=== PATIENT | female | born 1980 | race Caucasian/White ===

== ENCOUNTER 2018-07-01 11:02 | Inpatient (IN) ==
[2018-07-01] MEDS ORDERED: LORazepam 1 MG TAB PO STA (11:56)
[2018-07-01] MEDS ORDERED: SODIUM CHLORIDE 0.9% 1000ML 1,000 ML IV SCH (12:00)
[2018-07-01 12:04] LABS: Hematocrit (blood only) 42.7 % (37-47); Hemoglobin 14.1 g/dL (12.0-16.0); Mean Corpuscular Volume 101.7 fL (80-100); Mean Platelet Volume 9.8 fL (7.4-10.4); Platelet Count 298 K/uL (130-400); RDW Coefficient of Variation 13.5 % (11.5-14.5); RDW Standard Deviation 50.9 fL (36.4-46.3); White Blood Count 8.97 K/uL (4.8-10.8)
[2018-07-01 12:12] LABS: Albumin Level 4.1 gm/dl (3.4-5.0); BUN Creatinine Ratio 7.4 (10-20); Calcium 8.7 mg/dl (8.5-10.1); Creatinine Clr Calc Pharmacy 71.1 ml/min; Est GFR (African American) 81.8; Est GFR (Non-African American) 70.6; Magnesium 2.3 mg/dl (1.8-2.4); Potassium 3.2 mmol/L (3.5-5.1)
[2018-07-01] MEDS ORDERED: LORazepam 1 MG/2 ML VIAL IV STA (12:15)
[2018-07-01 12:23] LABS: Bilirubin,Total 0.5 mg/dl (0.2-1); Globulin 4.3 gm/dl (2.5-4.0); Total Protein 8.4 gm/dl (6.4-8.2)
[2018-07-01 12:34] LABS: ALC (manual) 4.32 K/uL (1.2-3.4); Basophils # (manual) 0.08 K/uL (0-0.2); Basophils % (manual) 0.9 %; Eosinophils # (manual) 0.16 K/uL (0-0.5); Lymphocytes # (manual) 2.85 K/uL (1.2-3.4); Lymphocytes % (manual) 31.8 %; Monocytes # (manual) 0.32 K/uL (0.11-0.59); Monocytes % (manual) 3.6 %; Neutrophils % (manual) 45.5 %; Reactive Lymphocytes # (manual) 1.47 K/uL
--- NOTE | 2018-07-01 12:36 | CT Scan Report ---
CT head/brain wo con CLINICAL HISTORY: 38 years-old Female with syncope. Acute syncope TECHNIQUE: Multiple axial CT images of the head were obtained without contrast. A dose lowering tech nique was utilized adhering to the principles of ALARA. CT DOSE: 537.48 mGy.cm COMPARISON: None. FINDINGS: No acute intracranial hemorrhage, midline shift, intracranial mass, hydrocephalus, territorial ischem ia or abnormal extra-axial collection. Prominent perivascular space about the inferior left lentiform nucleus. The calvarium is intact. The paranasal sinuses, mastoid air cells, and middle ear cavities are clear . IMPRESSION: No acute intracranial abnormality. The above report was generated using voice recognition software. It may contain grammatical, syntax o r spelling errors. Electronically signed by: Ray Blank M.D. 07/01/2018 12:35 PM
[2018-07-01] MEDS ORDERED: LORazepam 2 MG/4 ML VIAL IV STA (12:38)
--- NOTE | 2018-07-01 15:02 | History & Physical Report ---
Date of Service July 01, 2018 Assessment & Plan (1) Alcohol withdrawal seizure: Father tells a very convincing history for seizure (see HPI). Alcohol withdrawal seizure the most likely given her alcohol consumption with frequent cessation for testing. Other etiologies less likely, and will defer EEG to neurology discretion. Other causes of syncope such as arrythmia or vasovagal seem less likely given history. - Neurology consult - Seizure precautions - Telemetry (2) Alcohol use: Per patient, drinks ~8 drinks (rum) per day every 2-3 days. Per father to ED provider, more frequent and possibly larger amounts. Discussed safe alcohol consumption with the patient. - Banana bag, then oral vitamin repletion - LARISA protocol - Psych liaison for alcohol use (3) Anxiety: No current anxiety or depression per patient. - Continue home meds (4) Hepatitis: AST/ALT were 130/114 on admission, lending some support to increased alcohol intake. - Hepatitis C testing - Monitor LFTs - Outpatient follow up unless trending upwards (5) Elevated TSH: TSH was 7.9 on admission. Given acute illness, thyroid function testing may be abnormal. Will defer further testing as patient has no signs/symptoms of hypothyroidism. - Repeat in 4-6 weeks (6) DVT prophylaxis: SCDs - Low risk per calculator History of Present Illness Primary Care Provider: Orlin Patel 38yo F w/ hx of depression and insomnia who presents with very likely seizure. Patient was at [facility] with her father. The father reports that she mentioned that the ceiling fans were bothersome or "flashing," though there were none there. She then rafaela her arms up to her chest and started shaking with eyes rolling in her head. Her father is not sure if she had some mouth movements or not. No tongue biting and no nasrin or bladder incontinence. He reports that she was still standing, and was stiff and could not get put down. He reports the episode lasted a few seconds, then resolved, but that she had another episode a few minutes later, but was able to be lowered to the ground. He reports that she was confused afterward for at least an hour or so. She was brought by EMS to the ED where she received 2mg IV Ativan and 1 L normal saline. At present, she is tired, but otherwise asymptomatic. She reports that she drinks "3-4" drinks with rum and water every few days ( about every other or every 3rd day). The drinks usually have 1.5 to 2 shots of rum, making a total of ~8 drinks on the days she drinks. Per ED staff, her father privately expressed concern that she drinks more than she lets on or admits. She had a DUI previously and per her father, she will stop drinking for a few days prior to visiting her credit control officer. She denies any history of seizures in the past or alcohol withdrawals. Allergies Allergy/AdvReac Type Severity Reaction Status Date / Time No Known Allergies Allergy Unverified 07/01/18 11:40 Home Medications Home Medications Medication Instructions Recorded Confirmed Type fluoxetine [Prozac] 20 mg PO DAILY 07/01/18 07/01/18 History hydroxyzine HCl 100 mg PO HS PRN 07/01/18 07/01/18 History Past Med/Surg History Medical History Anxiety (Chronic) Depression (Chronic) Surgical History delivery delivered Family History Sister Bipolar 2 disorder Social History Feels Safe at Home: Yes Smoking Status: Current some day smoker Hx Alcohol Use: Yes Alcohol Intake Frequency: a few times a week Preferred Language: [place] Communication Ability: Effective Review of Systems Constitutional: + fatigue; no fever, no chills and no sweats Eyes: no diplopia Ear, Nose, Mouth, Throat: no ear trauma, no nasal discharge and no dental pain Respiratory: no cough, no chest congestion and no dyspnea Cardiovascular: no chest pain, no dyspnea on exertion, no palpitations and no syncope Gastrointestinal: no abdominal pain, no belching, no constipation, no diarrhea/ loose stools, no blood in stools and no melena Musculoskeletal: no back pain, no joint pain and no muscle weakness Integumentary: no rash, no skin ulcer and no erythema Neurologic: no generalized weakness, no loss of sensation, no numbness and no paresthesia Psychiatric: no depression and no anxiety Endocrine: no fatigue, no polydipsia and no polyphagia Physical Exam 2 Vital Signs (Past 24 Hours): Last Vital Signs Temp 36.7 C 07/01/18 11:11 Pulse 76 07/01/18 13:52 Resp 18 07/01/18 13:52 BP 131/87 07/01/18 13:52 Pulse Ox 98 07/01/18 13:52 Constitutional: WD/WN, vitals as above cooperative and + lethargic Eyes: EOM intact bilaterally; no conjunctival abnormality ENMT: external ear and nose normal, oropharynx normal Neck: trachea midline, no thyromegaly normal visual inspection Respiratory: normal respiratory effort, lungs clear to auscultation no respiratory distress Cardiovascular: RRR, no murmur, no edema Gastrointestinal (Abdomen): Inspection/Auscultation: abdomen normal to inspection; abdomen not distended Musculoskeletal: no cyanosis or clubbing, extremities motor strength 5/5 Skin: no rashes, warm and dry Neurologic: moves all extremities and awake Psychiatric: Orientation: alert, oriented to person and cooperative _ (1) Alcohol withdrawal seizure Complication of substance-induced condition: uncomplicated Qualified Code(s) : F10.230 - Alcohol dependence with withdrawal, uncomplicated
[2018-07-01 15:17] LABS: Appearance Urine Clear (Clear); Bacteria Urine Automated 2+ (Negative); Bilirubin Urine Negative (Negative); Cast Urine Automated 0 /lpf (0-5); Color Urine Yellow; Glucose Urine UA Negative (Negative); Ketones Urine Negative (Negative); Leukocyte Esterase Urine Negative (Negative); Nitrite Urine Positive (Negative); Protein Urine Negative (Negative); Specific Gravity Urine 1.009 (1.000-1.030); Urobilinogen Urine Negative (Negative)
--- NOTE | 2018-07-01 15:42 | Emergency Department Note ---
Entered by Jennifer Manning acting as a scribe for History of Present Illness General Chief complaint: Seizure Source: patient History of Present Illness Provider complaint: seizure Onset (ago): day(s) (this morning) Location: left and right Pain Consistency: + other (episode) Quality: + other (seizure) Associated symptoms: + other (Associated symptoms: nausea. Denies: headache, fever, congestion, cough, cold, vomiting, diarrhea) The patient is a 38 year old female who presents to the Emergency Room with complaints of an episode of a seizure beginning this morning. She reports she is unsure what happened. The patient notes she remembers being in the grocery when she felt as though "many fans were blowing on her head," and does not remember what happened after that. Nursing notes report the patient's father witnessed this event and observed the patient having a seizure. He caught the patient before she hit the ground. The patient denies any headache, fever, congestion, cough, cold, vomiting, or diarrhea. She notes some mild nausea. The patient reports she slept very little last night, and had a strong cup of coffee this morning. She notes she usually has 1 cup of coffee per day and occasionally has energy drinks. She states she drinks alcohol about 4 times per week. The patient reports she last drank alcohol yesterday, and had 1 drink. She notes she does not drink a significant amount during the week and does not feel she has an alcohol dependency. The patient reports she is prescribed a daily medication for depression, and has not taken it for the past 4 days. Home Medications Home Medications Medication Instructions Recorded Confirmed Type fluoxetine [Prozac] 20 mg PO DAILY 07/01/18 07/01/18 History hydroxyzine HCl 100 mg PO HS PRN 07/01/18 07/01/18 History folic acid 1 mg PO QAM #30 tab 07/02/18 Rx levothyroxine 25 mcg PO QAM #30 tab 07/02/18 Rx phenobarbital 15 mg PO DIRECTED #16 tab 07/02/18 Rx thiamine HCl (vitamin B1) [Vitamin 200 mg PO BID #120 tab 07/02/18 Rx B-1] Allergies Allergy/AdvReac Type Severity Reaction Status Date / Time No Known Allergies Allergy Unverified 07/01/18 11:40 Past Med/Surg History Medical History Anxiety (Chronic) Depression (Chronic) Fatigue Varicose vein of leg Surgical History delivery delivered Social History Current Living Situation: Spouse current occupational status: employed 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 Other Information That Helps Us Care for You: Yes Feels Safe at Home: Yes Safety Concerns: Feels Safe At This Time Smoking Status: Current some day smoker Tobacco Type: cigarettes Cigarettes per Day: Averages 1 per day Do You Dip or Chew Tobacco: No Hx Alcohol Use: Yes (Rum) Alcohol Intake Frequency: 3 or more drinks per day Alcohol Intake Frequency Comment: Drinks rum,approximately 5-6 drinks per day, 3 days per week Hx Substance Use: No (Was a marijuana smoker quitting 2 years ago) Beliefs That Will Affect Care: None Preferred Language: Singaporean Review of Systems See HPI for pertinent positives & negatives. and A total of 10 systems reviewed and were otherwise negative Physical Exam Vital Signs Vital Signs - 24 hr 07/01/18 11:11 07/01/18 11:22 07/01/18 13:52 Temperature 36.7 C Temperature Source Oral Sepsis Recent Fever Within 48 Hours No Sepsis New/Unexplained Change in Mental Status No Sepsis Action Taken by Nursing No Action Required Pulse Rate - Lying Pulse Rate - Sitting Pulse Rate - Standing Pulse Rate 96 H Pulse Rate [Apical] 76 Pulse Rhythm Regular Pulse Rhythm [Apical] Regular Pulse Strength Normal Pulse Strength [Apical] Normal Respiratory Rate 18 18 Respiratory Effort / Characteristics Non-Labored Spontaneous Non-Labored Spontaneous Respiratory Depth Normal Normal Respiratory Pattern Regular Regular Blood Pressure - Lying Blood Pressure - Sitting Blood Pressure- Standing Blood Pressure 146/105 H Blood Pressure [Right Arm] 131/87 Blood Pressure Mean 118 Blood Pressure Mean [Right Arm] 101 Blood Pressure Position Lying Blood Pressure Position [Right Arm] Pulse Oximetry 98 100 98 Oxygen Delivery Method Room Air Room Air Room Air 07/01/18 14:21 07/01/18 15:00 Temperature Temperature Source Sepsis Recent Fever Within 48 Hours Sepsis New/Unexplained Change in Mental Status Sepsis Action Taken by Nursing Pulse Rate - Lying 81 Pulse Rate - Sitting 83 Pulse Rate - Standing 92 H Pulse Rate Pulse Rate [Apical] 85 Pulse Rhythm Pulse Rhythm [Apical] Regular Pulse Strength Pulse Strength [Apical] Normal Respiratory Rate 20 Respiratory Effort / Characteristics Non-Labored Spontaneous Respiratory Depth Normal Respiratory Pattern Regular Blood Pressure - Lying 127/83 Blood Pressure - Sitting 135/94 Blood Pressure- Standing 129/96 Blood Pressure Blood Pressure [Right Arm] 135/92 Blood Pressure Mean Blood Pressure Mean [Right Arm] 106 Blood Pressure Position Blood Pressure Position [Right Arm] Lying Pulse Oximetry 98 Oxygen Delivery Method Room Air Vital signs reviewed. Patient noted to be tachycardic and hypertensive. General: Well-appearing woman, jittery, in no significant distress. Some difficulty with recall, seizure precautions maintained. HEENT: No scleral icterus, PERRLA, neck supple. Atraumatic. Cardiovascular: Tachycardic rate and regular rhythm, no extra sounds. Pulmonary: Clear to auscultation bilaterally, normal work of breathing. Abdomen: Soft, nontender, nondistended, positive bowel sounds. Musculoskeletal: Atraumatic, no peripheral edema. Neurologic: Patient awake alert and oriented x 3, full strength in all 4 extremities. Cranial nerves 2 through 12 grossly intact. Skin: Warm, dry, no rash. Course 1152: Past medical records reviewed. The patient was evaluated in room C6, and a complete history and physical examination were performed. 1407: Upon reevaluation, the patient is resting. I discussed test results. They verbalized agreement with the treatment plan. 1410: I reviewed the patient's case with Dr. Sanches, [facility] hospitalist. He will evaluate the patient for further management. Consultations Consultation #1: I reviewed the patient's case with Dr. Sanches, [facility] hospitalist. He will evaluate the patient for further management. Time: 14:12 Administered Medications Discontinued Medications Acetaminophen (Tylenol) 650 mg PO Q4H PRN PRN Reason: pain/fever Stop: 07/31/18 16:46 Last Admin: 07/02/18 08:11 Dose: 650 mg Admin: 07/02/18 00:09 Dose: 650 mg Admin: 07/01/18 19:12 Dose: 650 mg Cyanocobalamin (Vitamin B-12) 100 mcg PO QAM [facility] Stop: 08/01/18 08:59 Last Admin: 07/02/18 08:12 Dose: 100 mcg Fluoxetine HCl (Prozac) 20 mg PO QPM [facility] Stop: 07/31/18 20:59 Last Admin: 07/01/18 20:59 Dose: Not Given Folic Acid (Folvite) 1 mg PO QAM [facility] Stop: 08/01/18 08:59 Last Admin: 07/02/18 08:12 Dose: 1 mg Gadobutrol (Gadavist 65ml) 6.5 ml IV ONCE PRN PRN Reason: Interaction Checking Stop: 07/06/18 10:59 Last Admin: 07/02/18 11:01 Dose: 6.5 ml Sodium Chloride (Nss 1000ml) 1,000 mls @ 999 mls/hr IV .Q1H1M [facility]FA[facility] Stop: 07/01/18 13:00 Last Infusion: 07/01/18 13:58 Dose: 0 mls/hr Admin: 07/01/18 12:54 Dose: 999 mls/hr Lorazepam (Ativan) 1 mg in 2 mls @ 2 mls/min IV NOW STA Stop: 07/01/18 12:16 Last Admin: 07/01/18 12:53 Dose: Not Given Lorazepam (Ativan) 2 mg in 4 mls @ 4 mls/min IV NOW STA Stop: 07/01/18 12:39 Last Admin: 07/01/18 12:53 Dose: 4 mls/min Multivitamins 10 ml/ Thiamine HCl 100 mg/ Folic Acid 1 mg/Sodium Chloride 1, 011.2 mls @ 250 mls/hr IV .Q4H3M JOSE RAFAEL Stop: 07/01/18 21:32 Last Infusion: 07/01/18 23:26 Dose: 0 mls/hr Admin: 07/01/18 19:13 Dose: 250 mls/hr Levothyroxine Sodium (Synthroid) 25 mcg PO DAILYBB JOSE RAFAEL Stop: 08/01/18 13:19 Last Admin: 07/02/18 14:36 Dose: 25 mcg Lorazepam (Ativan) 1 mg PO NOW STA Stop: 07/01/18 11:57 Last Admin: 07/01/18 12:53 Dose: Not Given Potassium Chloride (Klor-Con Pwd) 60 meq PO NOW ONE Stop: 07/01/18 17:16 Last Admin: 07/01/18 17:39 Dose: 60 meq Thiamine HCl (Vitamin B-1) 100 mg PO QAM [facility]FA[facility] Stop: 08/01/18 08:59 Last Admin: 07/02/18 08:12 Dose: 100 mg Thiamine HCl (Vitamin B-1) 200 mg PO BID [facility] RAFAEL Stop: 08/01/18 08:59 Last Admin: 07/02/18 10:01 Dose: 200 mg Vitamin D (Vitamin D3) 400 units PO QAM [facility] Stop: 08/01/18 08:59 Last Admin: 07/02/18 08:12 Dose: 400 units Medical Decision Making Differential Diagnosis DDx: Intracranial hemorrhage, intracranial mass, migraine headache, tension headache , sinusitis, meningitis, electrolyte abnormality, metabolic derangement, alcohol withdrawal Medical Records Attestation: I reviewed the patient's medical records. Home Medications Current Medication List: was personally reviewed by me Laboratory Data Attestation: I reviewed the patient's lab results. Result diagrams: 07/02/18 08:05 07/02/18 08:05 Lab Results 07/01/18 07/01/18 07/01/18 Range/Units 10:52 10:52 12:19 WBC 8.97 (4.8-10.8) K/uL RBC 4.20 (4.2-5.4) M/uL Hgb 14.1 (12.0-16.0) g/dL Hct 42.7 (37-47) % MCV 101.7 H (80-100) fL MCH 33.6 (25-34) pg MCHC 33.0 (32-36) g/dL RDW Std Deviation 50.9 H (36.4-46.3) fL RDW Coeff of Flip 13.5 (11.5-14.5) % Plt Count 298 (130-400) K/uL MPV 9.8 (7.4-10.4) fL Neutrophils % (Manual) 45.5 % Lymphocytes % (Manual) 31.8 % Reactive Lymphs % (Man) 16.4 % Monocytes % (Manual) 3.6 % Eosinophils % (Manual) 1.8 % Basophils % (Manual) 0.9 % Neutrophils # (Manual) 4.08 (1.4-6.5) K/uL Total Absolute Neuts 4.08 (1.4-6.5) K/uL Lymphocytes # (Manual) 2.85 (1.2-3.4) K/uL Reactive Lymphs # 1.47 K/uL Total Abs Lymphocytes 4.32 H (1.2-3.4) K/uL Monocytes # (Manual) 0.32 (0.11-0.59) K/uL Eosinophils # (Manual) 0.16 (0-0.5) K/uL Basophils # (Manual) 0.08 (0-0.2) K/uL Sodium 135 L (136-145) mmol/L Potassium 3.2 L (3.5-5.1) mmol/L Chloride 104 (98-107) mmol/L Carbon Dioxide 12 L (21-32) mmol/L Anion Gap 19.0 H (3-11) BUN 8 (7-18) mg/dl Creatinine 1.01 (0.6-1.2) mg/dl Est Cr Clr Drug Dosing 71.1 ml/min Est GFR ( Amer) 81.8 Est GFR (Non-Af Amer) 70.6 BUN/Creatinine Ratio 7.4 L (10-20) Glucose 119 H (70-99) mg/dl POC Glucose (70-99) Calcium 8.7 (8.5-10.1) mg/dl Magnesium 2.3 (1.8-2.4) mg/dl Total Bilirubin 0.5 (0.2-1) mg/dl AST 130 H (15-37) U/L ALT 114 H (12-78) U/L Alkaline Phosphatase 100 (45-117) U/L Total Protein 8.4 H (6.4-8.2) gm/dl Albumin 4.1 (3.4-5.0) gm/dl Globulin 4.3 H (2.5-4.0) gm/dl Albumin/Globulin Ratio 1.0 (0.9-2) Vitamin B12 (211-911) pg/ml Folate (>5.38) ng/ml TSH 7.980 H (0.300-4.500) uIu/ml Free T4 (0.8-1.6) ng/dl Urine Color Urine Appearance (Clear) Urine pH (4.5-7.5) Ur Specific [place] (1.000-1.030) Urine Protein (Negative) Urine Glucose (UA) (Negative) Urine Ketones (Negative) Urine Blood (Negative) Urine Nitrite (Negative) Urine Bilirubin (Negative) Urine Urobilinogen (Negative) Ur Leukocyte Esterase (Negative) Urine WBC (Auto) (0-5) /hpf Urine RBC (Auto) (0-4) /hpf U Hyaline Cast (Auto) (0-5) /lpf U Epithel Cells (Auto) (0-5) /lpf Urine Bacteria (Auto) (Negative) POC Ur Test (NEG) Ethyl Alcohol mg/dL < 3.0 (0-3) mg/dl Lyme Disease IgG Ab (Negative) Lyme Disease IgM Ab (Negative) Hepatitis C Antibody (Neg) 07/01/18 07/01/18 07/01/18 Range/Units 12:58 14:40 14:47 WBC (4.8-10.8) K/uL RBC (4.2-5.4) M/uL Hgb (12.0-16.0) g/dL Hct (37-47) % MCV (80-100) fL MCH (25-34) pg MCHC (32-36) g/dL RDW Std Deviation (36.4-46.3) fL RDW Coeff of Flip (11.5-14.5) % Plt Count (130-400) K/uL MPV (7.4-10.4) fL Neutrophils % (Manual) % Lymphocytes % (Manual) % Reactive Lymphs % (Man) % Monocytes % (Manual) % Eosinophils % (Manual) % Basophils % (Manual) % Neutrophils # (Manual) (1.4-6.5) K/uL Total Absolute Neuts (1.4-6.5) K/uL Lymphocytes # (Manual) (1.2-3.4) K/uL Reactive Lymphs # K/uL Total Abs Lymphocytes (1.2-3.4) K/uL Monocytes # (Manual) (0.11-0.59) K/uL Eosinophils # (Manual) (0-0.5) K/uL Basophils # (Manual) (0-0.2) K/uL Sodium (136-145) mmol/L Potassium (3.5-5.1) mmol/L Chloride (98-107) mmol/L Carbon Dioxide (21-32) mmol/L Anion Gap (3-11) BUN (7-18) mg/dl Creatinine (0.6-1.2) mg/dl Est Cr Clr Drug Dosing ml/min Est GFR ( Amer) Est GFR (Non-Af Amer) BUN/Creatinine Ratio (10-20) Glucose (70-99) mg/dl POC Glucose 83 (70-99) Calcium (8.5-10.1) mg/dl Magnesium (1.8-2.4) mg/dl Total Bilirubin (0.2-1) mg/dl AST (15-37) U/L ALT (12-78) U/L Alkaline Phosphatase (45-117) U/L Total Protein (6.4-8.2) gm/dl Albumin (3.4-5.0) gm/dl Globulin (2.5-4.0) gm/dl Albumin/Globulin Ratio (0.9-2) Vitamin B12 (211-911) pg/ml Folate (>5.38) ng/ml TSH (0.300-4.500) uIu/ml Free T4 (0.8-1.6) ng/dl Urine Color Yellow Urine Appearance Clear (Clear) Urine pH 5.0 (4.5-7.5) Ur Specific [place] 1.009 (1.000-1.030) Urine Protein Negative (Negative) Urine Glucose (UA) Negative (Negative) Urine Ketones Negative (Negative) Urine Blood Negative (Negative) Urine Nitrite Positive H (Negative) Urine Bilirubin Negative (Negative) Urine Urobilinogen Negative (Negative) Ur Leukocyte Esterase Negative (Negative) Urine WBC (Auto) 1-5 (0-5) /hpf Urine RBC (Auto) 0-4 (0-4) /hpf U Hyaline Cast (Auto) 0 (0-5) /lpf U Epithel Cells (Auto) 10-20 H (0-5) /lpf Urine Bacteria (Auto) 2+ H (Negative) POC Ur Test NEG (NEG) Ethyl Alcohol mg/dL (0-3) mg/dl Lyme Disease IgG Ab (Negative) Lyme Disease IgM Ab (Negative) Hepatitis C Antibody (Neg) 07/01/18 07/02/18 07/02/18 Range/Units 17:00 08:05 08:05 WBC 5.04 (4.8-10.8) K/uL RBC 3.79 L (4.2-5.4) M/uL Hgb 12.8 (12.0-16.0) g/dL Hct 38.2 (37-47) % MCV 100.8 H (80-100) fL MCH 33.8 (25-34) pg MCHC 33.5 (32-36) g/dL RDW Std Deviation 50.7 H (36.4-46.3) fL RDW Coeff of Flip 13.7 (11.5-14.5) % Plt Count 256 (130-400) K/uL MPV 9.7 (7.4-10.4) fL Neutrophils % (Manual) % Lymphocytes % (Manual) % Reactive Lymphs % (Man) % Monocytes % (Manual) % Eosinophils % (Manual) % Basophils % (Manual) % Neutrophils # (Manual) (1.4-6.5) K/uL Total Absolute Neuts (1.4-6.5) K/uL Lymphocytes # (Manual) (1.2-3.4) K/uL Reactive Lymphs # K/uL Total Abs Lymphocytes (1.2-3.4) K/uL Monocytes # (Manual) (0.11-0.59) K/uL Eosinophils # (Manual) (0-0.5) K/uL Basophils # (Manual) (0-0.2) K/uL Sodium 138 (136-145) mmol/L Potassium 3.7 D (3.5-5.1) mmol/L Chloride 109 H (98-107) mmol/L Carbon Dioxide 20 L (21-32) mmol/L Anion Gap 9.0 (3-11) BUN 4 L (7-18) mg/dl Creatinine 0.74 (0.6-1.2) mg/dl Est Cr Clr Drug Dosing 97.1 ml/min Est GFR ( Amer) 119.1 Est GFR (Non-Af Amer) 102.8 BUN/Creatinine Ratio 5.5 L (10-20) Glucose 101 H (70-99) mg/dl POC Glucose (70-99) Calcium 8.4 L (8.5-10.1) mg/dl Magnesium 2.1 (1.8-2.4) mg/dl Total Bilirubin 0.6 (0.2-1) mg/dl AST 59 H (15-37) U/L ALT 66 (12-78) U/L Alkaline Phosphatase 83 (45-117) U/L Total Protein 6.5 D (6.4-8.2) gm/dl Albumin 3.2 L (3.4-5.0) gm/dl Globulin 3.3 (2.5-4.0) gm/dl Albumin/Globulin Ratio 1.0 (0.9-2) Vitamin B12 (211-911) pg/ml Folate > 24.00 (>5.38) ng/ml TSH (0.300-4.500) uIu/ml Free T4 (0.8-1.6) ng/dl Urine Color Urine Appearance (Clear) Urine pH (4.5-7.5) Ur Specific [place] (1.000-1.030) Urine Protein (Negative) Urine Glucose (UA) (Negative) Urine Ketones (Negative) Urine Blood (Negative) Urine Nitrite (Negative) Urine Bilirubin (Negative) Urine Urobilinogen (Negative) Ur Leukocyte Esterase (Negative) Urine WBC (Auto) (0-5) /hpf Urine RBC (Auto) (0-4) /hpf U Hyaline Cast (Auto) (0-5) /lpf U Epithel Cells (Auto) (0-5) /lpf Urine Bacteria (Auto) (Negative) POC Ur Test (NEG) Ethyl Alcohol mg/dL (0-3) mg/dl Lyme Disease IgG Ab (Negative) Lyme Disease IgM Ab (Negative) Hepatitis C Antibody (Neg) 07/02/18 07/02/18 07/02/18 Range/Units 08:05 09:55 09:55 WBC (4.8-10.8) K/uL RBC (4.2-5.4) M/uL Hgb (12.0-16.0) g/dL Hct (37-47) % MCV (80-100) fL MCH (25-34) pg MCHC (32-36) g/dL RDW Std Deviation (36.4-46.3) fL RDW Coeff of Flip (11.5-14.5) % Plt Count (130-400) K/uL MPV (7.4-10.4) fL Neutrophils % (Manual) % Lymphocytes % (Manual) % Reactive Lymphs % (Man) % Monocytes % (Manual) % Eosinophils % (Manual) % Basophils % (Manual) % Neutrophils # (Manual) (1.4-6.5) K/uL Total Absolute Neuts (1.4-6.5) K/uL Lymphocytes # (Manual) (1.2-3.4) K/uL Reactive Lymphs # K/uL Total Abs Lymphocytes (1.2-3.4) K/uL Monocytes # (Manual) (0.11-0.59) K/uL Eosinophils # (Manual) (0-0.5) K/uL Basophils # (Manual) (0-0.2) K/uL Sodium (136-145) mmol/L Potassium (3.5-5.1) mmol/L Chloride (98-107) mmol/L Carbon Dioxide (21-32) mmol/L Anion Gap (3-11) BUN (7-18) mg/dl Creatinine (0.6-1.2) mg/dl Est Cr Clr Drug Dosing ml/min Est GFR ( Amer) Est GFR (Non-Af Amer) BUN/Creatinine Ratio (10-20) Glucose (70-99) mg/dl POC Glucose (70-99) Calcium (8.5-10.1) mg/dl Magnesium (1.8-2.4) mg/dl Total Bilirubin (0.2-1) mg/dl AST (15-37) U/L ALT (12-78) U/L Alkaline Phosphatase (45-117) U/L Total Protein (6.4-8.2) gm/dl Albumin (3.4-5.0) gm/dl Globulin (2.5-4.0) gm/dl Albumin/Globulin Ratio (0.9-2) Vitamin B12 750 (211-911) pg/ml Folate (>5.38) ng/ml TSH (0.300-4.500) uIu/ml Free T4 0.81 (0.8-1.6) ng/dl Urine Color Urine Appearance (Clear) Urine pH (4.5-7.5) Ur Specific [place] (1.000-1.030) Urine Protein (Negative) Urine Glucose (UA) (Negative) Urine Ketones (Negative) Urine Blood (Negative) Urine Nitrite (Negative) Urine Bilirubin (Negative) Urine Urobilinogen (Negative) Ur Leukocyte Esterase (Negative) Urine WBC (Auto) (0-5) /hpf Urine RBC (Auto) (0-4) /hpf U Hyaline Cast (Auto) (0-5) /lpf U Epithel Cells (Auto) (0-5) /lpf Urine Bacteria (Auto) (Negative) POC Ur Test (NEG) Ethyl Alcohol mg/dL (0-3) mg/dl Lyme Disease IgG Ab (Negative) Lyme Disease IgM Ab (Negative) Hepatitis C Antibody Neg (Neg) 01/29/19 Range/Units 09:55 WBC (4.8-10.8) K/uL RBC (4.2-5.4) M/uL Hgb (12.0-16.0) g/dL Hct (37-47) % MCV (80-100) fL MCH (25-34) pg MCHC (32-36) g/dL RDW Std Deviation (36.4-46.3) fL RDW Coeff of Flip (11.5-14.5) % Plt Count (130-400) K/uL MPV (7.4-10.4) fL Neutrophils % (Manual) % Lymphocytes % (Manual) % Reactive Lymphs % (Man) % Monocytes % (Manual) % Eosinophils % (Manual) % Basophils % (Manual) % Neutrophils # (Manual) (1.4-6.5) K/uL Total Absolute Neuts (1.4-6.5) K/uL Lymphocytes # (Manual) (1.2-3.4) K/uL Reactive Lymphs # K/uL Total Abs Lymphocytes (1.2-3.4) K/uL Monocytes # (Manual) (0.11-0.59) K/uL Eosinophils # (Manual) (0-0.5) K/uL Basophils # (Manual) (0-0.2) K/uL Sodium (136-145) mmol/L Potassium (3.5-5.1) mmol/L Chloride (98-107) mmol/L Carbon Dioxide (21-32) mmol/L Anion Gap (3-11) BUN (7-18) mg/dl Creatinine (0.6-1.2) mg/dl Est Cr Clr Drug Dosing ml/min Est GFR ( Amer) Est GFR (Non-Af Amer) BUN/Creatinine Ratio (10-20) Glucose (70-99) mg/dl POC Glucose (70-99) Calcium (8.5-10.1) mg/dl Magnesium (1.8-2.4) mg/dl Total Bilirubin (0.2-1) mg/dl AST (15-37) U/L ALT (12-78) U/L Alkaline Phosphatase (45-117) U/L Total Protein (6.4-8.2) gm/dl Albumin (3.4-5.0) gm/dl Globulin (2.5-4.0) gm/dl Albumin/Globulin Ratio (0.9-2) Vitamin B12 (211-911) pg/ml Folate (>5.38) ng/ml TSH (0.300-4.500) uIu/ml Free T4 (0.8-1.6) ng/dl Urine Color Urine Appearance (Clear) Urine pH (4.5-7.5) Ur Specific [place] (1.000-1.030) Urine Protein (Negative) Urine Glucose (UA) (Negative) Urine Ketones (Negative) Urine Blood (Negative) Urine Nitrite (Negative) Urine Bilirubin (Negative) Urine Urobilinogen (Negative) Ur Leukocyte Esterase (Negative) Urine WBC (Auto) (0-5) /hpf Urine RBC (Auto) (0-4) /hpf U Hyaline Cast (Auto) (0-5) /lpf U Epithel Cells (Auto) (0-5) /lpf Urine Bacteria (Auto) (Negative) POC Ur Test (NEG) Ethyl Alcohol mg/dL (0-3) mg/dl Lyme Disease IgG Ab Negative (Negative) Lyme Disease IgM Ab Negative (Negative) Hepatitis C Antibody (Neg) Imaging Data Radiologist's Impression: Radiology results as stated below per my review and the radiologist's interpretation: CT head/brain wo con CLINICAL HISTORY: 38 years-old Female with syncope. Acute syncope TECHNIQUE: Multiple axial CT images of the head were obtained without contrast. A dose lowering technique was utilized adhering to the principles of ALARA. CT DOSE: 537.48 mGy.cm COMPARISON: None. FINDINGS: No acute intracranial hemorrhage, midline shift, intracranial mass, hydrocephalus, territorial ischemia or abnormal extra-axial collection. Prominent perivascular space about the inferior left lentiform nucleus. The calvarium is intact. The paranasal sinuses, mastoid air cells, and middle ear cavities are clear. IMPRESSION: No acute intracranial abnormality. The above report was generated using voice recognition software. It may contain grammatical, syntax or spelling errors. Electronically signed by: Ray Blank M.D. 07/01/2018 12:35 PM ECG Data Attestation: I personally reviewed and interpreted this ECG as follows: Indication: other (seizure) Rate (beats per minute): 87 Rhythm: normal sinus Findings: + other (Prolonged QTC at 490) and + nonspecific-ST abn; no PAC and no PVC Blood Pressure Blood Pressure Findings: Elevated blood pressure Blood Pressure Disposition: elevated BP felt to be situational MDM Narrative This pt was evaluated and appeared to be in no distress. IV access was obtained and lab work was drawn. Pt was placed on the monitor and storage bin tender with seizure precations maintained. Pt was hydrated with NSS, given ativan 2 mg IV as she is tachycardic and hypertensive. Pt admits to heavier ETOH consumption. Her states she drinks Bacardi after work and on weekends. She did have a DUI last year and is on probation. Lab work reveals elevated LFT, AST> ALT, concerning for ETOH etiology. CT head is negative. EKG reveals a sinus rhythm. Pt was advised of the findings. Given the history, the hospitalist service was consulted for for further management. Pt is aware of the plan and agrees. Impression & Plan Alcohol withdrawal, First time seizure, Elevated liver enzymes Discharge Plan Visit Data *Final* Discharge Date/Time: 07/01/18 15:29 Chief Complaint: Seizure ED Provider: Echo Petty Discharge Problem: Alcohol withdrawal, First time seizure, Elevated liver enzymes Patient Disposition: Admitted As Inpatient Discharge Instructions Interventions: ED Discharge Assessment Last Done: 07/01/18 15:29 The scribe's documentation has been prepared under my direction and personally reviewed by me in its entirety. I confirm that the note above accurately reflects all work, treatment, procedures, and medical decision making performed by me.
[2018-07-01] MEDS ORDERED: ONDANSETRON INJ 2 MG/ML 2 ML VIAL IV PRN (16:47)
[2018-07-01] MEDS ORDERED: LORazepam 1 MG TAB PO PRN (16:47)
[2018-07-01] MEDS ORDERED: POTASSIUM CHLORIDE PWD 20 MEQ PACK PO ONE (17:15)
[2018-07-01] MEDS ORDERED: MULTI-VITAMIN INFUSION 10 ML, THIAMINE HCL 100 MG, FOLIC ACID 1 MG in SODIUM CHLORIDE 0... IV SCH (17:30)
[2018-07-01] MEDS: ACETAMINOPHEN 325 MG TAB PO PRN (19:12)
[2018-07-01] MEDS ORDERED: FLUOXETINE HCL 20 MG CAP PO SCH (21:00)
[2018-07-02] MEDS: ACETAMINOPHEN 325 MG TAB PO PRN ×2 (00:09→08:11)
[2018-07-02 08:41] LABS: Hematocrit (blood only) 38.2 % (37-47); Hemoglobin 12.8 g/dL (12.0-16.0); Mean Corpuscular Hgb Conc 33.5 g/dL (32-36); Mean Corpuscular Volume 100.8 fL (80-100); Mean Platelet Volume 9.7 fL (7.4-10.4); Platelet Count 256 K/uL (130-400); RDW Coefficient of Variation 13.7 % (11.5-14.5); RDW Standard Deviation 50.7 fL (36.4-46.3); Red Blood Count 3.79 M/uL (4.2-5.4); White Blood Count 5.04 K/uL (4.8-10.8)
[2018-07-02] MEDS ORDERED: THIAMINE HCL 100 MG TAB PO SCH ×2 (09:00)
[2018-07-02] MEDS ORDERED: CYANOCOBALAMIN (VITAMIN B-12) 100 MCG TABLET PO SCH (09:00)
[2018-07-02] MEDS ORDERED: CHOLECALCIFEROL (VITAMIN D) 400 UNITS TABLET PO SCH (09:00)
[2018-07-02] MEDS ORDERED: FOLIC ACID 1 MG TAB PO SCH (09:00)
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
[2018-07-02 09:39] LABS: Albumin Level 3.2 gm/dl (3.4-5.0); BUN Creatinine Ratio 5.5 (10-20); Bilirubin,Total 0.6 mg/dl (0.2-1); Calcium 8.4 mg/dl (8.5-10.1); Creatinine Clr Calc Pharmacy 97.1 ml/min; Est GFR (African American) 119.1; Est GFR (Non-African American) 102.8; Globulin 3.3 gm/dl (2.5-4.0); Magnesium 2.1 mg/dl (1.8-2.4); Potassium 3.7 mmol/L (3.5-5.1); Total Protein 6.5 gm/dl (6.4-8.2)
[2018-07-02] MEDS ORDERED: GADOBUTROL 65ML VIAL IV PRN (11:00)
--- NOTE | 2018-07-02 11:15 | Magnetic Resonance Report ---
MR brain seizure wo/w con CLINICAL HISTORY: 38 years-old Female presenting with first seizure yesterday, headaches, alcohol abu se. TECHNIQUE: Multisequence, multiplanar MR imaging of the brain was performed before and after the admi nistration of intravenous contrast. IV contrast: 6.5 mL of Gadavist. COMPARISON: Noncontrast CT head from 07/01/2018. FINDINGS: Localizer images: Unremarkable. Ventricles and sulci normal in size. Brain parenchyma normal in appearance with preserved monsivais-white differentiation. Few prominent perivascular spaces in the basal ganglia. No abnormal parenchymal enha ncement. No mass effect or midline shift. No restricted diffusion to suggest acute ischemia. No hemorrhage. No extra-axial fluid collection. T2 skull base flow voids preserved. Bone marrow signal intensity within the calvarium within normal l imits. IMPRESSION: 1. No acute intracranial pathology. No abnormal enhancement. Electronically signed by: Isauro Silva M.D. 07/02/2018 11:14 AM
[2018-07-02 12:43] LABS: Lyme Ab IgG w/WB Rflx Negative (Negative); Lyme Ab IgM w/WB Rflx Negative (Negative)
--- NOTE | 2018-07-02 12:55 | Procedure Note ---
EEG Procedure Note Date of Service July 02, 2018 Start / End Times Start Time: 9:31 AM End Time: 9:[address] Tylor Magaña History This is a 38-year-old female who presents with first-time seizure. EEG for further evaluation of possible seizure etiology. Home Medication List Home Medications Medication Instructions Recorded Confirmed Type fluoxetine [Prozac] 20 mg PO DAILY 07/01/18 07/01/18 History hydroxyzine HCl 100 mg PO HS PRN 07/01/18 07/01/18 History Inpatient Medication List Acetaminophen (Tylenol) 650 mg PO Q4H PRN PRN Reason: pain/fever Stop: 07/31/18 16:46 Last Admin: 07/02/18 08:11 Dose: 650 mg Admin: 07/02/18 00:09 Dose: 650 mg Admin: 07/01/18 19:12 Dose: 650 mg Cyanocobalamin (Vitamin B-12) 100 mcg PO QAM [facility] Stop: 08/01/18 08:59 Last Admin: 07/02/18 08:12 Dose: 100 mcg Fluoxetine HCl (Prozac) 20 mg PO QPM [facility] Stop: 07/31/18 20:59 Last Admin: 07/01/18 20:59 Dose: Not Given Folic Acid (Folvite) 1 mg PO QAM [facility] Stop: 08/01/18 08:59 Last Admin: 07/02/18 08:12 Dose: 1 mg Gadobutrol (Gadavist 65ml) 6.5 ml IV ONCE PRN PRN Reason: Interaction Checking Stop: 07/06/18 10:59 Last Admin: 07/02/18 11:01 Dose: 6.5 ml Thiamine HCl (Vitamin B-1) 200 mg PO BID [facility] Stop: 08/01/18 08:59 Last Admin: 07/02/18 10:01 Dose: 200 mg Vitamin D (Vitamin D3) 400 units PO QAM [facility] Stop: 08/01/18 08:59 Last Admin: 07/02/18 08:12 Dose: 400 units Discontinued Medications Sodium Chloride (Nss 1000ml) 1,000 mls @ 999 mls/hr IV .Q1H1M JOSE RAFAEL Stop: 07/01/18 13:00 Last Infusion: 07/01/18 13:58 Dose: 0 mls/hr Admin: 07/01/18 12:54 Dose: 999 mls/hr Lorazepam (Ativan) 1 mg in 2 mls @ 2 mls/min IV NOW STA Stop: 07/01/18 12:16 Last Admin: 07/01/18 12:53 Dose: Not Given Lorazepam (Ativan) 2 mg in 4 mls @ 4 mls/min IV NOW STA Stop: 07/01/18 12:39 Last Admin: 07/01/18 12:53 Dose: 4 mls/min Multivitamins 10 ml/ Thiamine HCl 100 mg/ Folic Acid 1 mg/Sodium Chloride 1, 011.2 mls @ 250 mls/hr IV .Q4H3M JOSE RAFAEL Stop: 07/01/18 21:32 Last Infusion: 07/01/18 23:26 Dose: 0 mls/hr Admin: 07/01/18 19:13 Dose: 250 mls/hr Lorazepam (Ativan) 1 mg PO NOW STA Stop: 07/01/18 11:57 Last Admin: 07/01/18 12:53 Dose: Not Given Potassium Chloride (Klor-Con Pwd) 60 meq PO NOW ONE Stop: 07/01/18 17:16 Last Admin: 07/01/18 17:39 Dose: 60 meq Thiamine HCl (Vitamin B-1) 100 mg PO QAM [facility] Stop: 08/01/18 08:59 Last Admin: 07/02/18 08:12 Dose: 100 mg Description This is a 21 electrode EEG with a single channel dedicated to limited EKG. The electrodes were placed in accordance with the International 10-20 system. At the start of the recording the patient was in an awake state. Background was well organized and composed of symmetric mixed alpha and beta frequencies. There was a symmetric well-formed moderate amplitude 10-11 Hz posterior dominant rhythm that was reactive to eye opening and closure. Hyperventilation was not done. Intermittent photic stimulation at various frequencies produced no abnormalities. There was no state changes or sleep transients. Interpretation This is a normal awake only routine EEG. There was no electrographic seizures or epileptiform discharges. Clinical Correlation A normal EEG does not rule out epilepsy if there is a strong clinical suspicion.
[2018-07-02] MEDS ORDERED: LEVOTHYROXINE SODIUM 25 MCG TABLET PO SCH (13:20)
--- NOTE | 2018-07-09 20:58 | Discharge Summary ---
Date of Service date of admission - July 01, 2018 date of discharge - July 02, 2018 Admission HPI Per Admitting Provider 38yo F w/ hx of depression, insomnia, and alcohol abuse who presents with a likely seizure. Patient was at [employer] in [place] with her father shopping. The father reports that she mentioned that the ceiling fans were bothersome or "flashing," though there were none there. She then rafaela her arms up to her chest and started shaking with eyes rolling in her head. Her father is not sure if she had some mouth movements or not. No tongue biting and no nasrin or bladder incontinence. He reports that she was still standing, and was stiff and could not get put down. He reports the episode lasted a few seconds, then resolved, but that she had another episode a few minutes later, but was able to be lowered to the ground. He reports that she was confused afterward for at least an hour or so. She was brought by EMS to the ED where she received 2mg IV Ativan and 1 L normal saline. At present, she is tired, but otherwise asymptomatic. She reports that she drinks "3-4" drinks with rum and water every few days ( about every other or every 3rd day). The drinks usually have 1.5 to 2 shots of rum, making a total of ~8 drinks on the days she drinks. Per ED staff, her father privately expressed concern that she drinks more than she lets on or admits. 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 She denies any history of seizures in the past or alcohol withdrawals. Principal Diagnosis probable alcohol withdrawal seizure Discharge Exam Constitutional well developed and well nourished; no acute distress Eyes no nystagmus ENMT external ear and nose normal, oropharynx normal Respiratory normal respiratory effort, lungs clear to auscultation Cardiovascular RRR, no murmur, no edema Heart Sounds: normal S1 and normal S2 Vessels: posterior tibial pulses present and dorsalis pedis pulses present; no JVD Gastrointestinal (Abdomen) normal bowel sounds, soft, nontender, no hepatosplenomegaly Skin no jaundice Neurologic Motor/Sensory: + tremor (very mild) Psychiatric A+Ox3, euthymic affect Discharge Data Allergies Allergy/AdvReac Type Severity Reaction Status Date / Time No Known Allergies Allergy Unverified 07/01/18 11:40 Consultations neurology - Tylor Magaña MD Ordered Studies 1. CT head - negative for acute process. 2. MRI brain - negative for acute process. No stroke, tumor, etc. 3. EEG - negative for seizure focus. Hospital Course (1) New onset seizure: The patient was seen by [facility] and it was felt that she indeed had a seizure (or seizures) just prior to admission. The suspected seizure was likely due to alcohol withdrawal. EEG failed to show a seizure focus. CT head and MRI brain were both normal. She was placed on monitors and there was no additional seizure activity while hospitalized. Since this was likely an alcohol withdrawal seizure anti-epileptic medication was not indicated. Other labs including vitamin B12 and lyme's testing were negative. The patient was advised NOT to drive or operate heavy machinery until obtaining clearance from [facility]. [facility] will be seeing the patient in 1 month after discharge. (2) Alcohol abuse: The patient was counseled regarding the dangers of alcohol abuse. Her macrocytosis on CBC, hypokalemia, and elevated AST and ALT in a 2:1 ratio were all suggestive of alcohol abuse. She was provided thiamine, folic acid, etc during her stay. AST and ALT improved during her brief stay with supportive care. (3) Alcohol withdrawal: The patient likely was in the midst of mild alcohol withdrawal during her stay. She was advised to complete a phenobarbital taper after discharge to assist with any lingering withdrawal symptoms. (4) Elevated liver enzymes: Again her AST and ALT were elevated in a 2:1 ratio at time of admission. LFTs will need to be repeated as an outpatient to ensure normalization. (5) Tremor: Patient reported that this was chronic for her. It was uncertain if this was a familial tremor or due to anxiety or another etiology. (6) Anxiety: She should continue on prozac for such. (7) Hypothyroidism: TSH was elevated in the 7 range and free T4 was borderline low. In light of her chronic fatigue it was felt reasonable to initiate thyroid replacement. Thus, she was started on synthroid 25mcg once daily. She should have repeat TFTs in 6 weeks post-discharge. Total Time Total Time Spent Total Time Spent (In Minutes): 35 Total Time Includes: Examination of the Patient, Discharge Planning, Medication Reconciliation and Communication With Other Providers Discharge Plan Discharge Items Patient Disposition: Home - Self-Care Reason For Visit: SEIZURE Discharge Diagnosis: probable seizure, possibly due to alcohol withdrawal Discharge Goals: Diagnostic testing Activity: Per 'Additional Instructions' section Bathing Comment: OK to shower but no tub baths or swimming Driving/Machine Use Comment: no driving until you are seen by Dr. Magaña in the neurology clinic Non-emergency contact: Primary Care Provider and Neurologist Call non-emergency contact if: you have any medication questions Follow-up/Referrals: Kermit Magaña III, MD [Physician] - 08/01/18 1:40 pm (Please, follow up at [facility]rology Office with Dr. Magaña's assistant director of nursing, Em Ann PA-C, on August 01 at 2:00 pm ( arrive 1:40 pm). *This office is located at [address] [place] [address] in [place]. If you need to change this appointment, call the office at [phone].) Orlin Patel M.D. [Primary Care Provider] - 07/09/18 4:15 pm (Please, follow up at Dr. Patel's [place] office with Frances CASTELLON on SundayJuly 09 at 4:15 pm. *If you need to change this appointment, call the office at ) Diet: Regular Addtl Provider Instructions: From Robel Taylor - Hospitalist - You were admitted to [facility] for a suspected seizure. This may have been related to alcohol withdrawal. Your MRI brain was normal. Your EEG (brain wave test) was normal although a normal EEG does not rule out a recent seizure. Your lyme's testing was negative. Your vitamin B12 level was normal. You appear to have early, mild hypothyroidism (underactive thyroid gland). Given your chronic fatigue it is reasonable to start thyroid replacement. Please start tomorrow morning 25mcg of levothyroxine. It is best to take this on an empty stomach as soon as you wake up. You will need to have your family doctor repeat your thyroid level ("TSH") in 6 weeks. With respect to your drinking please consider counseling. You can secure this through your family doctor. 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 Please abstain 100% from alcohol if at all possible. Please take the following medications - 1. folic acid 1mg daily for 30 days 2. thiamine 200mg twice a day for 30 days 3. phenobarbital taper - start this TONIGHT if possible; this helps with mild alcohol withdrawal symptoms (tremors, anxiety, flushing/sweats, etc) In addition to the above, we saw "atypical lymphocytes" on your CBC (blood count ). We sometimes see this in the setting of viral infections. A common viral infection that causes atypical lymphocytes is mono. If you continue to have fatigue please have your family doctor check a mono test. Follow-up - 1. see Dr. Magaña, neurology, as scheduled 2. see your family doctor as scheduled Again NO DRIVING a vehicle or heavy machinery until cleared by Dr. Magaña at your follow-up appointment. Do not take tub baths or swim in a swimming pool either. Return to [facility] or report to any hospital if - * you have worsening alcohol withdrawal symptoms (severe shakes/tremors, fevers over 100.5 degrees, severe sweats, vomiting, etc) * you have a recurrent seizure * passing out spells * any other concerns Prescriptions: New thiamine HCl (vitamin B1) [Vitamin B-1] 100 mg Tablet 200 mg PO BID Qty: 120 RF: 0 levothyroxine 25 mcg tablet 25 mcg PO QAM Qty: 30 RF: 2 folic acid 1 mg Tablet 1 mg PO QAM Qty: 30 RF: 0 phenobarbital 15 mg tablet 15 mg PO DIRECTED Qty: 16 RF: 0 Continue hydroxyzine HCl 50 mg Tablet 100 mg PO HS PRN (Reason: Anxiety) RF: 0 fluoxetine [Prozac] 20 mg Capsule 20 mg PO DAILY RF: 0 Stand-Alone Forms: [facility]/Other Patient Handouts: ED Seizure Alcohol Withdrawal, ED Hypothyroidism Discharge Orders: Discharge Order (Routine); Ordered 07/02/18 Ordered By: Robel Taylor Admission Data Admit Date/Time: 07/01/18 14:46 Attending Provider: Robel Taylor Admit Provider: Jignesh Sanches Primary Care Provider: Orlin Patel Other Providers: Kermit Magaña III Service: Telemetry Medical Other Interventions: Discharge Summary Assessment (RN) Last Done: 07/02/18 16:38 Pending Studies at Discharge: No DC Date/Time DO NOT enter until pt leaves facility: 07/02/18 17:55
== END 2018-07-02 17:55 | disposition home or self-care (01) | DRG 101 ==
LOC: ED 11:02 → 2W 14:46 → SUATTDRO 14:46 → 2W 15:29
DX: F32.9 Major depressive disorder, single episode, unspecified; G25.0 Essential tremor; R56.9 Unspecified convulsions; Z81.8 Family history of other mental and behavioral disorders; R94.6 Abnormal results of thyroid function studies; R94.5 Abnormal results of liver function studies; Z79.899 Other long term (current) drug therapy; G47.00 Insomnia, unspecified; F10.988 Alcohol use, unspecified with other alcohol-induced disorder; F17.210 Nicotine dependence, cigarettes, uncomplicated; T51.0X1A Toxic effect of ethanol, accidental (unintentional), initial encounter; R53.82 Chronic fatigue, unspecified; R51 Headache; F41.9 Anxiety disorder, unspecified